=== PATIENT | female | born 1985 | race Caucasian/White ===

== ENCOUNTER 2017-11-16 05:56 | Emergency (ER) | payer SELFPAY ==
[~2017-11-16] VITALS: Ht 162.6 cm; Wt 75.0 kg
[2017-11-16 06:16] VITALS: BP 0/0
[2017-11-16] MEDS ORDERED: EPINEPHRINE 0.1MG/ML (1:10,000) 10ML SYR ONE (14:59)
[2017-11-16] MEDS ORDERED: SODIUM BICARBONATE 7.5% 0.9 MEQ/ML 50ML SYR IV ONE (14:59)
== END 2017-11-16 06:02 | disposition expired ==
LOC: ER 05:57
DX: I46.9 Cardiac arrest, cause unspecified (principal)
CPT/HCPCS: 31500; 92950; 99285; J3490